=== PATIENT | female | born 1980 | race Caucasian/White ===

== ENCOUNTER 2025-01-03 18:40 | Emergency (ER) | payer OTHER, SELFPAY ==
[2025-01-03 18:51] VITALS: BP 173/99; PULSE 88; RESP 18; TEMP 36.9; O2SAT 99; BMI 34.9
[2025-01-03 21:37] VITALS: BP 150/92; PULSE 83; RESP 22; O2SAT 100
[2025-01-04] VITALS (8 sets, daily range): BP systolic 120–143; BP diastolic 75–90; PULSE 72–86; O2SAT 96–98
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
[2025-01-04] MEDS: NAPROXEN 250 MG TABLET 500 MG PO (02:24)
[2025-01-04] MEDS: methocarbamoL 500 MG TABLET PO (02:24)
== END 2025-01-04 03:21 | disposition home or self-care (01) ==
PROVIDERS: Emergency Provider Emergency Medicine
DX: S16.1XXA Strain of muscle, fascia and tendon at neck level, initial encounter (principal); S39.012A Strain of muscle, fascia and tendon of lower back, initial encounter; S29.012A Strain of muscle and tendon of back wall of thorax, initial encounter; S96.911A Strain of unspecified muscle and tendon at ankle and foot level, right foot, initial encounter; R51.9 Headache, unspecified; V43.54XA Car driver injured in collision with van in traffic accident, initial encounter; Y92.410 Unspecified street and highway as the place of occurrence of the external cause
CPT/HCPCS: 70450; 72125; 72128; 72131; 73610; 99283; 99284